=== PATIENT | female | born 1985 | race Caucasian/White ===

== ENCOUNTER 2024-02-19 08:45 | Outpatient (CLI) | payer BC, OTHER ==
--- NOTE | 2024-02-19 11:25 | XRAY Report ---
PROCEDURE: Tib/Fib RT INDICATIONS: CONTUSION OF RIGHT LOWER LEG TECHNIQUE: 2 views of the tibia and fibula were acquired. COMPARISON: None. FINDINGS: Bones: No displaced fracture. No dislocation in the partially visualized ankle and knee joint. Parti ally visualized patellar enthesopathy. Soft tissues: No suspicious calcifications. IMPRESSION: No acute radiographic abnormality. If there is high concern for occult injury, consider repeat radiog fely or cross-sectional imaging. Reviewed by: Duke Pruett MD on 02/19/2024 11:24 AM PDT Approved by: Duke Pruett MD on 02/19/2024 11:24 AM PDT Station ID: [id number]
== END 2024-02-19 09:00 | disposition home or self-care (01) ==
LOC: DI.N 08:45
PROVIDERS: ATTEND Family Medicine
DX: S80.11XA Contusion of right lower leg, initial encounter (principal)